=== PATIENT | male | born 1980 | race Caucasian/White ===

== ENCOUNTER 2017-02-23 16:44 | Emergency (ER) | payer BC, OTHER ==
[2017-02-23 21:24] LABS: Hematocrit 45 % (42-52); Hemoglobin 15.1 g/dl (14.0-18.0); Mean Corpuscular HGB Conc 34 g/dl (31-36); Mean Corpuscular Hemoglobin 31 pg (27-31); Mean Corpuscular Volume 93 fL (80-94); Mean Platelet Volume 10 um3 (7.4-10.4); Red Blood Count 4.83 10^6/ul (4.0-5.4); Red Cell Distribution Width 14 % (10.5-15)
[2017-02-23 21:37] LABS: Albumin 4.3 g/dL (3.2-5.2); BUN/Creatinine Ratio 17.6 (8-20); Calcium 9.4 mg/dL (8.6-10.3); EGFR African American 129.7 (>60); EGFR Non-African American 100.9 (>60); Potassium 3.4 mmol/L (3.5-5.0); Total Bilirubin 0.6 mg/dL (0.2-1.0); Total Protein 7.3 g/dL (6.4-8.9)
[2017-02-23 21:40] LABS: Urine Bilirubin Negative (Negative); Urine Glucose Negative (Negative); Urine Nitrite Negative (Negative)
[2017-02-23] MEDS ORDERED: Iohexol 350* (CONTRAST) 500 ML MDV IV ONE (21:47)
--- NOTE | 2017-02-23 22:12 | RAD ---
INDICATION: Right-sided chest pain. COMPARISON: Comparison is made with a prior chest x-ray study from May 05, 2007. TECHNIQUE: Dual-energy PA and lateral views of the chest were obtained. FINDINGS: The heart is within normal limits in size. Mediastinal and hilar contours appear within normal limits. The lungs are hyperinflated and clear. No pleural effusion or pneumothorax is seen. IMPRESSION: NO EVIDENCE FOR ACTIVE CARDIOPULMONARY DISEASE.
--- NOTE | 2017-02-23 22:34 | RAD ---
INDICATION: Tinnitus. COMPARISON: Comparison is made with a prior CT of the brain from November 23, 2006. TECHNIQUE: Contiguous axial sections of the brain were obtained from the skull base to the vertex without contrast. FINDINGS: The ventricles, cisterns and sulci are within normal limits. No significant focal abnormality or mass effect is seen. There is no evidence for hemorrhage. No significant focal osseous abnormality is seen. The visualized portion of the paranasal sinuses and mastoid air cells appear clear. IMPRESSION: NO EVIDENCE FOR GROSS ACUTE INFARCT, MASS EFFECT OR HEMORRHAGE.
--- NOTE | 2017-02-23 23:02 | RAD ---
INDICATION: Tinnitus. COMPARISON: Comparison is made with a prior CT of the brain of the same date. TECHNIQUE: A CT angiogram of the head and neck was performed following intravenous injection of 80 ml of Omnipaque 350 nonionic contrast. Contiguous axial sections were obtained from the thoracic inlet through the skull vertex. Images were reconstructed in the coronal and sagittal planes and in a 3-D volume rendered format. The distal cervical internal carotid artery diameter is used as the denominator for stenosis measurement. FINDINGS: RIGHT CAROTID: The common and internal carotid arteries appear patent without stenosis. LEFT CAROTID: The common and internal carotid arteries appear patent without stenosis. VERTEBRALS: The vertebral arteries appear widely patent. CTA BRAIN: The internal carotid, anterior and middle cerebral arteries appear patent without evidence for high-grade stenosis or occlusion. The vertebral, basilar and posterior cerebral arteries appear patent without evidence for high-grade stenosis or occlusion. No gross focal perfusion abnormalities are seen. No aneurysm or vascular malformation is seen. NECK: There is a slightly prominent left jugulodigastric lymph node measuring up to 1.3 cm in transverse dimension although no significant enlarged lymph nodes by size criteria are seen. The tonsils appear prominent on both sides. The parotid and submandibular glands appear to be within normal limits. The thyroid gland appears normal. The lung apices appear clear. The sinuses are clear. IMPRESSION: NO EVIDENCE FOR CAROTID STENOSIS OR LARGE VESSEL INTRACRANIAL THROMBUS. CPT II Codes: 3100F
[2017-02-23 23:48] VITALS: BP 127/80
--- NOTE | 2017-02-25 23:24 | ED ---
Kristal Fitch Rebecca, scribed for Ayan Montes MD on 02/23/17 at 1906 . Dizziness - HPI Summary HPI Summary: Pt is a 36 y/o M referred from [facility] who presents to ED c/o tinnitus and dizziness characterized as his depth perception being compromised. Sx present today as acute on chronic, beginning gradually multiple months ago and increasing in frequency recently. Sx are typically intermittent, lasting for a few days as a time, but worsened today after standing up while at work. Sx aggravated by supine to erect, alleviated by nothing. Pt additionally c/o headache in the right temporal and parietal regions characterized as throbbing and pressure. Denies hearing loss, nausea, decreased appetite, slurred speech, numbness or tingling. Current sx are similar to prior episodes of tinnitus that have been intermittent since last . Reports one prior similar BONNER/migraine when his father in 1998, which was resolved with an injection to the neck. No FHx of Meniere's Disease. - History Of Current Complaint Chief Complaint: EDDizziness Stated Complaint: LIGHTHEADED/FALL Time Seen by Provider: 02/23/17 18:56 Hx Obtained From: Patient Onset/Duration: Still Present Timing: Intermittent Episode Lasting Severity Initially: Severe Severity Currently: Severe Character: Unable To Describe - depth perception being compromised Aggravating Factor(s): Supine To Erect Alleviating Factor(s): Nothing Associated Signs And Symptoms: Positive: Tinnitus - Intermittent, CC, Other: - BONNER (R temporal and parietal); Denies numbness, tingling. Negative: Nausea, Change In Diet, Slurred Speech - Allergies/Home Medications Allergies/Adverse Reactions: Allergies Allergy/AdvReac Type Severity Reaction Status Date / Time Penicillins Allergy Unknown Verified 02/23/17 16:50 Reaction Details PMH/Surg Hx/FS Hx/Imm Hx Cardiovascular History: Denies: Hx Hypertension Sensory History: Reports: Hx Contacts or Glasses Opthamlomology History: Reports: Hx Contacts or Glasses - Surgical History Surgery Procedure, Year, and Place: R hand cyst removal, adenoidectomy as a child Hx Anesthesia Reactions: No Infectious Disease History: No Infectious Disease History: Denies: Traveled Outside the [place] in Last 30 Days - Family History Known Family History: Positive: Other - Negative for Meniere's Disease - Social History Occupation: Employed Full-time - Construction Alcohol Use: Occasionally Alcohol Amount: 2-3 hard liquor drinks per week Substance Use Type: Reports: Marijuana Smoking Status (MU): Current Every Day Smoker Cigarettes Packs Per Day: 3 Review of Systems Negative: Fever, Chills Negative: Erythema ENT: Other - Tinnitus (intermittent for months) Positive: Other - Denies hearing loss. Negative: Sore Throat Negative: Chest Pain Negative: Shortness Of Breath, Cough Positive: Other - Denies decreased appetite. Negative: Abdominal Pain, Vomiting , Nausea Negative: dysuria, hematuria Negative: Myalgia, Edema Negative: Rash Neurological: Other - Dizziness characterized as depth perception being "off," Negative for tingling Negative: Numbness, Slurred Speech All Other Systems Reviewed And Are Negative: Yes Physical Exam - Summary Physical Exam Summary: Constitutional: Well-developed, Well-nourished, Alert. (-) Distressed Skin: Warm, Dry HENT: Eyes: Conjunctiva normal Neck: Musculoskeletal ROM normal neck. (-) JVD, (-) Stridor, (-) Tracheal deviation Cardio: Rhythm regular, rate normal, Heart sounds normal; Intact distal pulses; The pedal pulses are 2+ and symmetric. Radial pulses are 2+ and symmetric. (-) Murmur Pulmonary/Chest wall: Effort normal. (-) Respiratory distress, (-) Wheezes, (-) Rales Abd: Soft. (-) Tenderness, ~(-) Distension, (-) Guarding, (-) Rebound Musculoskeletal: (-) Edema Lymph: (-) Cervical adenopathy Neuro: Alert, Oriented x3, Strength normal, Cranial nerves II-XII are grossly intact. (-) Dysmetria, (-) Nystagmus, (-) Ataxia by finger to nose testing, (-) Sensory deficit. Psych: Mood and affect Normal Triage Information Reviewed: Yes Vital Signs On Initial Exam: Initial Vitals Temp Pulse Resp BP Pulse Ox 98.1 F 76 18 137/93 100 02/23/17 16:51 02/23/17 16:51 02/23/17 16:51 02/23/17 16:51 02/23/17 16:51 Vital Signs Reviewed: Yes - Holt Coma Scale Coma Scale Total: 15 Diagnostics - Vital Signs Vital Signs Temp Pulse Resp BP Pulse Ox 06/06/17 16:51 98.1 F 76 18 137/93 100 - Laboratory Result Diagrams: 02/23/17 17:48 02/23/17 17:48 Lab Statement: Any lab studies that have been ordered have been reviewed, and results considered in the medical decision making process. - Radiology CXR Xray Interpretation: No Acute Changes - NO EVIDENCE FOR ACTIVE CARDIOPULMONARY DISEASE Radiology Interpretation Completed By: Radiologist - CT Brain CT CT Interpretation: No Acute Changes - NO EVIDENCE FOR GROSS ACUTE INFARCT, MASS EFFECT OR HEMORRHAGE. CT Interpretation Completed By: Radiologist Head CTA CT Interpretation: No Acute Changes - NO EVIDENCE FOR CAROTID STENOSIS OR LARGE VESSEL INTRACRANIAL THROMBUS. CT Interpretation Completed By: Radiologist - EKG 1659 Cardiac Rate: NL - 72 BPM EKG Rhythm: Sinus Rhythm ST Segment: Normal EKG Interpretation: No STEMI Dizzy Course/Dx - Course Assessment/Plan: Pt is a 36 y/o M who presents to ED c/o acute on chronic tinnitus, dizzines (depth perception skewed) and BONNER. CTA shows no aneurysms. CXR , Head CT and EKG reveal no acute findings. He has had normal BPs. Tenderness has been chronic, possibly related to Meneres by presenteation. He will be D/C to home wiht a Dx of chronic tinnitus and a follow up eith ENT in 2-3 days and [facility] [place] in 3-5 days. He mentioned severeal unrelated sx other the last few months, possibly resulting from anxiety. May have a component of panic attack and hypochondriasis. - Diagnoses Provider Diagnoses: chronic tinnitus Discharge - Discharge Plan Condition: Stable Disposition: HOME Patient Education Materials: Tinnitus (ED) Referrals: [facility]FERRAL [Outside] - 5 Days (Follow up in 3-5 days. ) Garett Gonzalez MD [Medical Doctor] - 3 Days (Follow up in 2-3 days. ) Additional Instructions: RETURN TO ED FOR ANY WORSENING OR CHANGING SYMPTOMS. The documentation as recorded by the Kristal linda Rebecca accurately reflects the service I personally performed and the decisions made by me, Ayan Montes MD.
== END 2017-02-23 23:46 | disposition home or self-care (01) ==
LOC: ED 16:44
DX: H93.19 Tinnitus, unspecified ear (principal); R42 Dizziness and giddiness
CPT/HCPCS: 36415; 70450; 70496; 70498; 71020; 80053; 81003; 83605; 84484; 85025; 85610; 85730; 93005; 99283; Q9967

== ENCOUNTER 2017-11-03 21:33 | Emergency (ER) | payer OTHER ==
[2017-11-03] MEDS ORDERED: NS 0.9% 1000 ML* 1,000 ML IV ONE (22:45)
[2017-11-03] MEDS ORDERED: Pantoprazole IV* 40 MG IV ONE (22:45)
[2017-11-03] MEDS ORDERED: Al Hydrox/Mg Hydrox/Simet LIQ* 30 ML UDC PO ONE (22:45)
[2017-11-03] MEDS ORDERED: Lidocaine 2% VISCOUS* 15 ML UDC PO ONE (22:45)
[2017-11-03] MEDS ORDERED: Aspirin Low Dose CHEW TAB* 81 MG PO ONE (22:46)
[2017-11-03 22:57] LABS: ABS Basophils 0.1 10^3/ul (0-0.2); ABS Eosinophils 0.4 10^3/ul (0-0.6); ABS Monocytes 1.1 10^3/ul (0-0.8); ABS Neutrophils 8.2 10^3/ul (1.5-7.7); ABS Nucleated RBC 0 10^3/ul; Eosinophil % 2.9 % (0-6); Hematocrit 45 % (42-52); Hemoglobin 15.3 g/dl (14.0-18.0); Mean Corpuscular HGB Conc 34 g/dl (31-36); Mean Corpuscular Hemoglobin 32 pg (27-31); Mean Corpuscular Volume 92 fL (80-94); Mean Platelet Volume 9 um3 (7.4-10.4); Nucleated Red Blood Cells % 0.1; Platelet Count 256 10^3/ul (150-450); Red Blood Count 4.85 10^6/ul (4.0-5.4); Red Cell Distribution Width 14 % (10.5-15); White Blood Count 13.7 10^3/ul (3.5-10.8)
[2017-11-03 23:09] LABS: EGFR Non-African American 103.7 (>60)
[2017-11-03 23:20] LABS: INR 0.97 (0.77-1.02)
--- NOTE | 2017-11-04 01:44 | ED ---
Laurie Fitch Nilda, scribed for Grant Culver MD on 11/03/17 at 2248 . HPI Chest Pain - HPI Summary HPI Summary: This patient is a 36 year old M presenting to [facility] accompanied by friend with a chief complaint of CP (back and front, currently not present) at 1830. The patient rates the initial pain 8/10 in severity but currently 0/10. Symptoms aggravated by recent stressor and PO intake, but alleviated by spontaneous resolution. Patient reports numbness in bilat UE and RLE (resolved), hiccups during PO intake, sensation of foreign body in throat (since 4 days ago), chest tightness (yesterday), and SOB (last night, resolved), but denies melena. He states he hasnt had recent choking episode. PMHx includes GERD (treated with antacid prn) and sleep apnea. - History of Current Complaint Chief Complaint: EDChestPainROMI Time Seen by Provider: 11/03/17 22:33 Hx Obtained From: Patient Onset/Duration: Started Hours Ago, Resolved Timing: Lasting Hours Initial Severity: Severe Current Severity: None Pain Intensity: 7 - initial Pain Scale Used: 0-10 Numeric Chest Pain Location: Right Anterior Chest Pain Radiates: Yes Chest Pain Radiates To:: Back Aggravating Factor(s): Other: - stress and PO intake Alleviating Factor(s): Spontaneous Resolution Associated Signs and Symptoms: Positive: Other: - numbness in bilat UE and RLE ( resolved), hiccups during PO intake, sensation of foreign body in throat (since 4 days ago), chest tightness (yesterday), and SOB (last night, resolved), but denies melena. - Additional Pertinent History Primary Care Physician: [id number] - Allergy/Home Medications Allergies/Adverse Reactions: Allergies Allergy/AdvReac Type Severity Reaction Status Date / Time Penicillins Allergy Unknown Verified 11/03/17 22:42 Reaction Details PMH/Surg Hx/FS Hx/Imm Hx Cardiovascular History: Denies: Hx Hypertension Respiratory History: Reports: Hx Sleep Apnea GI History: Reports: Hx Gastroesophageal Reflux Disease Sensory History: Reports: Hx Contacts or Glasses Opthamlomology History: Reports: Hx Contacts or Glasses - Surgical History Surgery Procedure, Year, and Place: R hand cyst removal, adenoidectomy as a child Hx Anesthesia Reactions: No Infectious Disease History: No Infectious Disease History: Denies: Traveled Outside the [place] in Last 30 Days - Family History Known Family History: Positive: Other - Negative for Meniere's Disease - Social History Occupation: Employed Full-time Alcohol Use: Occasionally Alcohol Amount: 2-3 hard liquor drinks per week Substance Use Type: Reports: Marijuana Hx Tobacco Use: Yes Smoking Status (MU): Current Every Day Smoker Review of Systems Positive: Other - hiccups with PO intake, sensation of foreign body in throat Positive: Chest Pain - resolved, chest tightness yesterday Positive: Shortness Of Breath - last night, resolved Positive: Other - negative melena Positive: Numbness - bilat UE and RLE (resolved) All Other Systems Reviewed And Are Negative: Yes Physical Exam - Summary Physical Exam Summary: General: well-appearing, no pain distress Skin: warm, color reflects adequate perfusion, dry Head: normal Eyes: EOMI, TONY ENT: normal Neck: supple, nontender Respiratory: CTA, breath sounds present Cardiovascular: RRR Abdomen: soft, tender over epigastrium Bowel: present Musculoskeletal: normal, strength/ROM intact Neurological: normal, sensory/motor intact, A&O x3 Psychological: affect/mood appropriate Triage Information Reviewed: Yes Vital Signs On Initial Exam: Initial Vitals Temp Pulse Resp BP Pulse Ox 98.1 F 88 16 122/88 97 11/03/17 21:47 11/03/17 21:47 11/03/17 21:47 11/03/17 21:47 11/03/17 21:47 Vital Signs Reviewed: Yes Diagnostics - Vital Signs Vital Signs Temp Pulse Resp BP Pulse Ox 11/03/17 21:47 98.1 F 88 16 122/88 97 - Laboratory Lab Results: Lab Results 11/03/17 11/03/17 11/03/17 Range/Units 22:10 22:10 22:10 WBC 13.7 H (3.5-10.8) 10^3/ul RBC 4.85 (4.0-5.4) 10^6/ul Hgb 15.3 (14.0-18.0) g/dl Hct 45 (42-52) % MCV 92 (80-94) fL MCH 32 H (27-31) pg MCHC 34 (31-36) g/dl RDW 14 (10.5-15) % Plt Count 256 (150-450) 10^3/ul MPV 9 (7.4-10.4) um3 Neut % (Auto) 59.8 (38-83) % Lymph % (Auto) 29.0 (25-47) % [place] % (Auto) 7.8 (1-9) % Eos % (Auto) 2.9 (0-6) % Baso % (Auto) 0.5 (0-2) % Absolute Neuts (auto) 8.2 H (1.5-7.7) 10^3/ul Absolute Lymphs (auto) 4.0 (1.0-4.8) 10^3/ul Absolute Monos (auto) 1.1 H (0-0.8) 10^3/ul Absolute Eos (auto) 0.4 (0-0.6) 10^3/ul Absolute Basos (auto) 0.1 (0-0.2) 10^3/ul Absolute Nucleated RBC 0 10^3/ul Nucleated RBC % 0.1 INR (Anticoag Therapy) 0.97 (0.77-1.02) APTT 31.0 (26.0-36.3) seconds D-Dimer, Quantitative < 200 (Less Than 230) ng/mL Sodium 134 (133-145) mmol/L Potassium 3.5 (3.5-5.0) mmol/L Chloride 100 L (101-111) mmol/L Carbon Dioxide 28 (22-32) mmol/L Anion Gap 6 (2-11) mmol/L BUN 16 (6-24) mg/dL Creatinine 0.83 (0.67-1.17) mg/dL Est GFR ( Amer) 133.3 (>60) Est GFR (Non-Af Amer) 103.7 (>60) BUN/Creatinine Ratio 19.3 (8-20) Glucose 112 H (70-100) mg/dL Lactic Acid (0.5-2.0) mmol/L Calcium 9.5 (8.6-10.3) mg/dL Total Bilirubin 0.40 (0.2-1.0) mg/dL AST 20 (13-39) U/L ALT 22 (7-52) U/L Alkaline Phosphatase 54 (34-104) U/L Troponin I 0.00 (<0.04) ng/mL C-Reactive Protein 1.70 (< 5.00) mg/L Total Protein 7.4 (6.4-8.9) g/dL Albumin 4.3 (3.2-5.2) g/dL Globulin 3.1 (2-4) g/dL Albumin/Globulin Ratio 1.4 (1-3) Lipase 28 (11.0-82.0) U/L TSH 6.60 H (0.34-5.60) mcIU/mL 11/03/17 Range/Units 22:10 WBC (3.5-10.8) 10^3/ul RBC (4.0-5.4) 10^6/ul Hgb (14.0-18.0) g/dl Hct (42-52) % MCV (80-94) fL MCH (27-31) pg MCHC (31-36) g/dl RDW (10.5-15) % Plt Count (150-450) 10^3/ul MPV (7.4-10.4) um3 Neut % (Auto) (38-83) % Lymph % (Auto) (25-47) % [place] % (Auto) (1-9) % Eos % (Auto) (0-6) % Baso % (Auto) (0-2) % Absolute Neuts (auto) (1.5-7.7) 10^3/ul Absolute Lymphs (auto) (1.0-4.8) 10^3/ul Absolute Monos (auto) (0-0.8) 10^3/ul Absolute Eos (auto) (0-0.6) 10^3/ul Absolute Basos (auto) (0-0.2) 10^3/ul Absolute Nucleated RBC 10^3/ul Nucleated RBC % INR (Anticoag Therapy) (0.77-1.02) APTT (26.0-36.3) seconds D-Dimer, Quantitative (Less Than 230) ng/mL Sodium (133-145) mmol/L Potassium (3.5-5.0) mmol/L Chloride (101-111) mmol/L Carbon Dioxide (22-32) mmol/L Anion Gap (2-11) mmol/L BUN (6-24) mg/dL Creatinine (0.67-1.17) mg/dL Est GFR ( Amer) (>60) Est GFR (Non-Af Amer) (>60) BUN/Creatinine Ratio (8-20) Glucose (70-100) mg/dL Lactic Acid 0.9 (0.5-2.0) mmol/L Calcium (8.6-10.3) mg/dL Total Bilirubin (0.2-1.0) mg/dL AST (13-39) U/L ALT (7-52) U/L Alkaline Phosphatase (34-104) U/L Troponin I (<0.04) ng/mL C-Reactive Protein (< 5.00) mg/L Total Protein (6.4-8.9) g/dL Albumin (3.2-5.2) g/dL Globulin (2-4) g/dL Albumin/Globulin Ratio (1-3) Lipase (11.0-82.0) U/L TSH (0.34-5.60) mcIU/mL Result Diagrams: 11/03/17 22:10 11/03/17 22:10 Lab Statement: Any lab studies that have been ordered have been reviewed, and results considered in the medical decision making process. - Radiology CXR Radiology Interpretation Completed By: ED Physician - CXR reveals NAD. - EKG 2155 Cardiac Rate: NL EKG Rhythm: Sinus Rhythm - [address] Segment: Normal Ectopy: None EKG Interpretation: early repolarization in anterior leads Re-Evaluation - Re-Evaluation First Eval Re-Evaluation Time: 01:28 Change: Improved Comment: Reviewed labs and imaging results with pt. Pain resolved after GI cocktail. Chest Pain Course/Dx - Course Assessment/Plan: This patient is a 36 year old M presenting to [facility] accompanied by friend with a chief complaint of CP (posterior and anterior, currently not present) at 1830. The patient rates the initial pain 8/10 in severity but currently 0/10. Symptoms aggravated by recent stressors and PO intake, but alleviated by spontaneous resolution. Patient reports numbness in bilat UE and RLE (resolved), hiccups during PO intake, sensation of foreign body in throat (since 4 days ago), chest tightness (yesterday), and SOB (last night, resolved), but denies melena. He states he hasnt had recent choking episode. PMHx includes GERD (treated with antacid prn) and sleep apnea. An EKG reveals NSR, 79 bpm, no ST elevation, no ectopy, and early repolarization in anterior leads. CXR reveals NAD. BP noted and advised to follow up with PCP. Allergies noted. Medications reviewed. CHEST PAIN GONE AFTER GI COCKTAIL. HAS HAD CHEST PAIN 11/03/17 AND DAYS PRIOR. DISCUSSED RESTARTING A PPI OR H2 DAVID ANTACID; PATIENT STATES HE HAS ALL THESE MEDICATIONS AT HOME. F/U WITH PMD; RETURN IF WORSE. - Diagnoses Provider Diagnoses: Blood pressure elevated without history of HTN, Chest pain, GERD ( gastroesophageal reflux disease) Discharge - Discharge Plan Condition: Stable Disposition: HOME Prescriptions: Sucralfate TAB* [Carafate*] 1 gm PO QID #60 tab Patient Education Materials: Chest Pain (ED), Gastroesophageal Reflux Disease ( ED) Referrals: Reynaldo Muse MD [Primary Care Provider] - Additional Instructions: FOLLOW UP WITH YOUR DOCTOR. CALL TODAY, 11/04/17, TO ARRANGE FOLLOW UP. TAKE YOUR ANTACID MEDICATION DIRECTED. RETURN TO THE EMERGENCY DEPARTMENT FOR ANY WORSENING OF YOUR CONDITION; PAIN, SHORTNESS OF BREATH, YOU FEEL ILL OR QUESTIONS OR CONCERNS. Your blood pressure was elevated during todays visit; please follow up with your primary care provider within a week for further evaluation. The documentation as recorded by the Laurie linda Nilda accurately reflects the service I personally performed and the decisions made by me, Grant Culver MD.
[2017-11-04 01:53] VITALS: BP 129/99
--- NOTE | 2017-11-04 07:55 | RAD ---
INDICATION: Chest pain. COMPARISON: Comparison is made with a prior study from February 23, 2017. TECHNIQUE: A portable view of the chest was obtained. FINDINGS: Cardiac and mediastinal contours appear to be within normal limits. The lungs are clear. No pleural effusion is seen. IMPRESSION: NO EVIDENCE FOR ACUTE DISEASE.
== END 2017-11-04 01:54 | disposition home or self-care (01) ==
LOC: ED 21:33
DX: R07.9 Chest pain, unspecified (principal); K21.9 Gastro-esophageal reflux disease without esophagitis; R03.0 Elevated blood-pressure reading, without diagnosis of hypertension; F17.200 Nicotine dependence, unspecified, uncomplicated
CPT/HCPCS: 36415; 71045; 80053; 83605; 83690; 84443; 84484; 85025; 85379; 85610; 85730; 86140; 93005; 96360; 96374; 99283; A9270-GY

== ENCOUNTER 2018-09-15 13:18 | Emergency (ER) | payer OTHER ==
[2018-09-15 13:32] VITALS: BP 123/83
--- NOTE | 2018-09-15 14:05 | UC ---
Respiratory Complaint HPI - HPI Summary HPI Summary: Pt reports in Nov had cough, cold sx, pt was given Rx doxy and prednisone. Pt states was improving until 10 days ago.Pt has been to a different urgent care 4 days ago and dx with viral. pt states has been using OTC cough suppressant, dayquil with little imptovement. Pt has a nebulizer and has been using with short term improvement. No fever, chills, rash. no cp, abd pain. no n/v/d. Pt does use tobacco. 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 - History of Current Complaint Chief Complaint: UCRespiratory Stated Complaint: COUGH CONGESTION RESP ISSUE Time Seen by Provider: 09/15/18 14:05 Hx Obtained From: Patient Onset/Duration: Gradual Onset Pain Intensity: 4 - Allergies/Home Medications Allergies/Adverse Reactions: Allergies Allergy/AdvReac Type Severity Reaction Status Date / Time Penicillins Allergy Unknown Verified 09/15/18 13:32 Reaction Details PMH/Surg Hx/FS Hx/Imm Hx Previously Healthy: Yes - Surgical History Surgical History: Yes Surgery Procedure, Year, and Place: R hand cyst removal, adenoidectomy as a child - Family History Known Family History: Positive: Other - Negative for Meniere's Disease - Social History Occupation: Employed Full-time Lives: With Family Alcohol Use: Occasionally Alcohol Amount: 2-3 hard liquor drinks per week Substance Use Type: Marijuana Smoking Status (MU): Current Every Day Smoker Household Exposure Type: Cigarettes - Immunization History Most Recent Influenza Vaccination: never Most Recent Tetanus Shot: unknown Most Recent Pneumonia Vaccination: never Review of Systems All Other Systems Reviewed And Are Negative: Yes Constitutional: Positive: Fatigue ENT: Positive: Nasal Discharge, Sinus Congestion Respiratory: Positive: Shortness Of Breath - with coughing paroxysms, Cough Physical Exam - Summary Physical Exam Summary: Vital Signs Reviewed: Yes A+Ox3, no distress, coarse cough Eyes: Conjunctiva Clear, TONY. EOM intact and full ENT: Hearing grossly normal TM x 2 clear, mmoist, uvula midline, no exudate, no erythema Neck: Positive: Supple resp; coarse cough, scatterd wheeze, speaking full sentences except interrupted with cough. no retractiion, no accessory muscle use Cardiovascular: RRR nl s1, s2 no m/r CBT <2 sec abd soft + BS nt/nd no guarding, no distension Musculoskeletal Exam: PERALTA x 4 without difficulty Strength Intact, ROM Intact Neurological: Positive: Alert, + sensation throughout Psychological: Positive: Normal Response To Family Skin: Positive: no rash, no ecchymosis Triage Information Reviewed: Yes Vital Signs: Initial Vital Signs Temp 99.6 F 09/15/18 13:28 Pulse 87 09/15/18 13:28 Resp 17 09/15/18 13:28 BP 123/83 09/15/18 13:28 Pulse Ox 98 09/15/18 13:28 Diagnostic Evaluation - Laboratory O2 Sat by Pulse Oximetry: 98 Respiratory Course/Dx - Course Course Of Treatment: Pt presents with progressive cough, green sputum and wheeze. Ptreports had a CXR earlier this week at different facility was neg. VSS. pt with coarse cough and scattered wheeze + tobacco use. will rx zithromax. prednisone. secretion precaution. return precaution. hydrate. motrin/apap - Differential Dx/Diagnosis Provider Diagnosis: Acute bronchitis Discharge - Sign-Out/Discharge Documenting (check all that apply): Patient Departure All imaging exams completed and their final reports reviewed: No Studies - Discharge Plan Condition: Stable Disposition: HOME Prescriptions: Azithromycin TAB* [Zithromax TAB (Z-EDILMA) 250 mg #6 tabs] 2 tab PO .TODAY, THEN 1 DAILY #1 edilma predniSONE TAB* [Deltasone 20 MG TAB*] 20 mg PO DAILY #13 tab Patient Education Materials: Acute Bronchitis (ED) Referrals: Reynaldo Muse MD [Primary Care Provider] - Additional Instructions: -Take antibiotics exactly as prescribed until gone -Use your albuterol nebulizer - 2 puffs every 4 hours for the next 2 days - then as needed -Stay well hydrated - avoid excess caffeine and all alcohol - eat regular, healthy meals - - humidify the air in the room where you sleep - boil water, run a hot steam shower, vaporizer, cups of water by heat register - okay to take over the counter decongestant and cough medication - take prednisone as prescribed until gone -- These infections are spread by secretions - do NOT share eating or drinking utensils - clean items you share with other people such as cell phones, computer mouse, TV remote, computer tablets,etc.. Once you have been antibiotics for 2 days, change your toothbrush and your pillowcase. -Contact your doctor to arrange a follow-up appointment this week. Call your doctor, return here or go to the emergency department with any questions or concerns d/w with Dr. Muse regarding smoking cessation - Billing Disposition and Condition Condition: STABLE Disposition: Home
== END 2018-09-15 14:29 | disposition home or self-care (01) ==
LOC: UCEAST 13:18
DX: J20.9 Acute bronchitis, unspecified (principal); Z88.0 Allergy status to penicillin; F17.200 Nicotine dependence, unspecified, uncomplicated
CPT/HCPCS: 99212; G0463

== ENCOUNTER 2018-11-25 08:10 | Day surgery (SDC) | payer OTHER ==
[~2018-11-25 08:10] MED LIST: Acetaminophen TAB* 325 MG ONE; Acetaminophen TAB* 325 MG PO ONE; Buffered Lidocaine 1% SYRIN* 1 ML/SYRINGE INTRADERM ONE; Gabapentin CAP(*) 300 MG ONE; Gabapentin CAP(*) 300 MG PO ONE; Lactated Ringers 1000 ML Bag* 1,000 ML IV SCH
[2018-11-25] MEDS ORDERED: Ondansetron INJ* 2 MG/ML VIAL ONE (09:27)
[2018-11-25] MEDS ORDERED: Dexamethasone IV* 4 MG/ML 1 ML (4 MG) ONE ×2 (09:27→10:10)
[2018-11-25] MEDS ORDERED: Lidocaine 2% PF * 5 ML VIAL ONE (09:27)
[2018-11-25] MEDS ORDERED: Succinylcholine* 20 MG/ML 10 ML VIAL ONE (09:27)
[2018-11-25] MEDS ORDERED: Propofol* 10 MG/ML 20 ML BTL ONE (09:27)
[2018-11-25] MEDS ORDERED: Midazolam* 1 MG/ML 2 ML VIAL (2 MG) ONE (09:29)
[2018-11-25] MEDS ORDERED: fentaNYL* 50 MCG/ML 2 ML VIAL (100 MCG VIAL) ONE ×2 (09:29→09:59)
[2018-11-25] MEDS ORDERED: Cisatracurium* 2 MG/ML MDV 5 ML ONE (09:44)
[2018-11-25] MEDS ORDERED: Levalbuterol 0.63MG/3ML NEB* UNIT OF USE INH PRN (09:59)
[2018-11-25] MEDS ORDERED: Ondansetron INJ* 2 MG/ML VIAL IV PRN (09:59)
[2018-11-25] MEDS ORDERED: HYDROmorphone INJ1* 1 MG/ML SYRINGE IV PRN (09:59)
[2018-11-25] MEDS ORDERED: Naloxone* 0.4 MG/ML 1 ML VIAL IV PRN (09:59)
[2018-11-25] MEDS ORDERED: DiMENhydriNATE IV* 50 MG/ML VIAL IV PUSH PRN (09:59)
[2018-11-25] MEDS ORDERED: fentaNYL* 50 MCG/ML 2 ML VIAL (100 MCG VIAL) IV PRN (09:59)
[2018-11-25] MEDS ORDERED: PROCHLORPERAZINE INJ 5 MG/ML 2 ML VIAL IV PRN (09:59)
[2018-11-25] MEDS ORDERED: Acetaminophen TAB* 325 MG PO PRN (09:59)
[2018-11-25] MEDS ORDERED: diPHENhydraMINE IV* 50 MG/ML 1 ml VIAL (BENADRYL) IV PRN (09:59)
[2018-11-25] MEDS ORDERED: HYDROcodone/ACETAMIN 5-325 MG* 1 TAB PO PRN ×2 (09:59)
[2018-11-25 11:37] VITALS: BP 135/79
--- NOTE | 2018-11-25 11:38 | OP ---
DATE OF OPERATION: 11/25/18 - [facility] DATE OF : 76 SURGEON: Anthony Castañeda MD [employer] MECHANIC: None. ANESTHESIA: General. PRE-OP DIAGNOSIS: Tonsillar hypertrophy. POST-OP DIAGNOSIS: Tonsillar hypertrophy. OPERATIVE PROCEDURE: Tonsillectomy. ESTIMATED BLOOD LOSS: Approximately 200 cc. SPECIMENS: Right and left tonsils to Pathology. INDICATIONS: This is a 38-year-old male who has had problems with recurrent tonsil discomfort, has had a few peritonsillar abscesses, and also has extremely large tonsils with obstructive sleep apnea. The decision was made to proceed with tonsillectomy. DESCRIPTION OF PROCEDURE: The patient was brought to the operating room. General anesthesia was induced and oral endotracheal tube was placed. Time-out was performed after the patient was draped. The table was turned 90 degrees. A McIvor mouth gag was used to facilitate exposure to the oropharynx and was suspended from the Hazel stand. The right tonsil was grasped with a straight Allis forceps, retracted medially and dissected free of its fossa with a coblation device at a setting of 7 and 3. There were many significant small bleeders during the dissection, which needed to be controlled with either bipolar function on the device or at one point a suction Bovie, which was brought into the field. Once the right tonsil was removed in its entirety, the tonsillar fossa was explored. The superior and inferior pole regions were prophylactically cauterized again. Attention was then turned to the left tonsil. This was removed in an identical fashion, again utilizing the coblation device. Again, multiple small significant bleeders were encountered during the capsular dissection. Some of these were able to be controlled with the bipolar function on the coblation device, but a number did need to be controlled with the suction Bovie. Once the left tonsil was completely removed , the superior and inferior pole regions were prophylactically cauterized. The tonsillar fossas were then extensively irrigated and suctioned. Numerous small points of bleeding from each tonsil were again cauterized. Several iterations of this were performed until eventually the tonsillar fossas were completely dry. The mouth gag was let down for a period of a minute. It was opened again. There was no evidence of active bleeding. An orogastric tube was passed into the stomach and the stomach contents were evacuated. Tonsillar fossas were aggressively irrigated one last time and once hemostasis seem to be assured, the patient was returned to the care of the anesthesiologist for extubation. [id number]/[facility] #: [id number] DANISH
== END 2018-11-25 12:06 | disposition home or self-care (01) ==
LOC: OR 08:10
PROVIDERS: ATTEND Otolaryngology
DX: J35.1 Hypertrophy of tonsils (principal); Z72.0 Tobacco use; K21.9 Gastro-esophageal reflux disease without esophagitis; G47.33 Obstructive sleep apnea (adult) (pediatric)
CPT/HCPCS: 88304; A9270-GY; J0330; J1100; J2250; J2405; J2704; J3010

== ENCOUNTER 2019-09-01 04:37 | Emergency (ER) | payer OTHER ==
--- OUTSIDE RECORDS SUMMARY | 2019-09-01 04:47 | XMS REPORT | Summary of Care ---
:1980 Author Organization [facility] Address [address] [place] [place] [address] Care Team Providers Name Role Phone Reynaldo Muse Primary Care Provider Reason for Visit Reason Comments Anxiety pt statse he had a bad breakup and is anxious. was self medicating with alcohol but would like to talk about medication Encounter Details Date Type Department Care Team Description 08/07/2019 Office Visit [facility] Trish Link, Anxiety (Primary Dx) [address] [facility] [place] [address] [address] [phone] [place] [address] [phone] Allergies Active Allergy Reactions Severity Noted Date Comments Penicillin G Anaphylaxis 05/06/2016 documented as of this encounter (statuses as of 08/07/2019) Medications Medication Sig Dispensed Refills Start Date End Date Status escitalopram Take 1 Tab 30 Tab 3 08/07/2019 Active (LEXAPRO) 10 MG Oral by mouth TabIndications: DAILY. Anxiety busPIRone (BUSPAR) 5 Take 1 Tab 90 Tab 3 08/07/2019 Active MG Oral Tab by mouth THREE TIMES DAILY. Omeprazole delayed Take 20 mg 0 Discontinued rel cap (PRILOSEC) 20 by mouth 9 MG Oral CAPSULE DAILY. DELAYED RELEASEIndications: Gastroesophageal reflux disease with esophagitis sucralfate (CARAFATE) by Does 0 11/04/2017 Discontinued 1 GM Oral not apply 9 TabIndications: route. Gastroesophageal reflux disease with esophagitis escitalopram Take 1 Tab 30 Tab 1 11/09/2017 Discontinued (LEXAPRO) 10 MG Oral by mouth 9 (Reorder) TabIndications: DAILY. Anxiety documented as of this encounter (statuses as of 08/07/2019) Active Problems Problem Noted Date Tobacco use 05/06/2016 Overview: 1/3 pack per day started age 19 Gastroesophageal reflux disease with esophagitis 05/06/2016 Colon polyps 05/06/2016 Overview: Colonoscopy performed age 27 for rectal bleeding documented as of this encounter (statuses as of 08/07/2019) Social History Tobacco Use Types Packs/Day Years Used Date Current Every Day Smoker Cigarettes 0.33 16 Smokeless Tobacco: Never Used Alcohol Use Drinks/Week oz/Week Comments Yes 5 Shots of liquor 5.0 Andrew zazueta a bottle a weekend night. Sex Assigned at Date Recorded Not on file Job Start Date Occupation Industry Not on file Not on file Not on file Travel History Travel Start Travel End No recent travel history available. documented as of this encounter Last Filed Vital Signs Vital Sign Reading Time Taken Comments Blood Pressure 132/82 08/07/2019 1:30 PM EST Pulse 87 08/07/2019 1:30 PM EST Temperature - - Respiratory Rate - - Oxygen Saturation 97% 08/07/2019 1:30 PM EST Inhaled Oxygen Concentration - - Weight 86.6 kg (191 lb) 08/07/2019 1:30 PM EST Height 185.4 cm (6' 1") 08/07/2019 1:30 PM EST Body Mass Index 25.2 08/07/2019 1:30 PM EST documented in this encounter Patient Instructions Patient InstructionsDoTrish gabriel PA-C - 08/07/2019 1:20 PM ESTEscribed refill of lexapro 10mg -- will not feel change for 7-14 days, take at same time daily Escribed BuSpar 5mg, 1 pill up to 3 x daily for anxiety Do not drink alcohol with lexapro Healthy diet, keep well hydrated, continue working out Talk with friends F/U appointment in 2 weeks Call if not improving or with any questions or concerns documented in this encounter Progress Notes Trish Link PA-C - 08/07/2019 1:20 PM EST PATIENT: Bing Viveros : 1980 DATE OF SERVICE: 08/07/2019 REFERRING PRACTITIONER: Self-Referred PRIMARY CARE PROVIDER: Reynaldo Muse CHIEF COMPLAINT: Chief Complaint Patient presents with Anxiety pt statse he had a bad breakup and is anxious. was self medicating with alcohol but would like to talk about medication Subjective HISTORY OF PRESENT ILLNESS: Bing Viveros is a 38-y.o. male who presents with anxiety x 3 weeks Bad breakup with girlfriend 3 weeks ago, grandmother a few months ago, mother is depressed Admits he has been drinking whiskey every day -- says he does no have problem, can stop drinking Wants to start medication Does not want to see therapist, says he talks with ex-, friends -- good support Was prescribed lexapro 10mg 11/09/17 by TORSTEN Torres -- admits he took it for 3 days then stopped Smoking weed every day Eating -- healthy Water -- keeping hydrated Has been working out daily --" feels good" Has custody of 2 children 10 and 14 Denies fever, chills, nausea, vomiting, diarrhea, chest pains, SOB, suicidal thoughts Depression Screening Over the last 2 weeks, have you been feeling down, depressed, anxious, or hopeless?: 2 Over the past 2 weeks, have you felt little interest or pleasure in doing things ?: 2 Trouble falling or staying asleep, or sleeping too much?: 3 Feeling tired or having little energy?: 3 Feeling bad about yourself or that you are a failure or have let yourself or your family down?: 2 Trouble concentrating on things, such as reading the newspaper or watching TV?: 3 Moving or speaking so slowly that other people notice OR being fidgety and restless?: 0 Thoughts that you would be better off or of hurting yourself in some way?: 0 How difficult have these problems made it for you to do your work, take care of things at home or get along with people?: Very difficult In the past 2 years, have you felt depressed or sad most days, even if you felt ok?: No No past medical history on file. No past surgical history on file. Family History Problem Relation Age of Onset Heart Father Current Outpatient Medications Medication Sig escitalopram (LEXAPRO) 10 MG Oral Tab Take 1 Tab by mouth DAILY. Omeprazole delayed rel cap (PRILOSEC) 20 MG Oral CAPSULE DELAYED RELEASE Take 20 mg by mouth DAILY. sucralfate (CARAFATE) 1 GM Oral Tab by Does not apply route. No current facility-administered medications for this visit. Allergies Allergen Reactions Penicillin G Anaphylaxis Social History Socioeconomic History Marital status: Single Spouse name: Not on file Number of children: Not on file Years of education: Not on file Highest education level: Not on file Occupational History Not on file Social Needs Financial resource strain: Not on file Food insecurity: Worry: Not on file Inability: Not on file Transportation needs: Medical: Not on file Non-medical: Not on file Tobacco Use Smoking status: Current Every Day Smoker Packs/day: 0.33 Years: 16.00 Pack years: 5.28 Types: Cigarettes Smokeless tobacco: Never Used Substance and Sexual Activity Alcohol use: Yes Alcohol/week: 5.0 standard drinks Types: 5 Shots of liquor per week Comment: Andrew zazueta a bottle a weekend night. Drug use: Yes Types: Marijuana Sexual activity: Yes Partners: Female Lifestyle Physical activity: Days per week: Not on file Minutes per session: Not on file Stress: Not on file Relationships Social connections: Talks on phone: Not on file Gets together: Not on file Attends religion service: Not on file Active member of club or organization: Not on file Attends meetings of clubs or organizations: Not on file Relationship status: Not on file Intimate partner violence: Fear of current or ex partner: Not on file Emotionally abused: Not on file Physically abused: Not on file Forced sexual activity: Not on file Other Topics Concern Back Care Not Asked Bike Helmet Not Asked Blood Transfusions Not Asked Caffeine Concern Not Asked Exercise Not Asked Hobby Hazards Not Asked International Travel Not Asked Service Not Asked Occupational Exposure Not Asked Seat Belt Not Asked Self-Exams Not Asked Sleep Concern Not Asked Special Diet Not Asked Stress Concern Not Asked Weight Concern Not Asked Social History Narrative Lives with two kids in [place], [place] Works as construction equipment mechanic Has girlfriend REVIEW OF SYSTEMS: Skin: negative skin lesions Eyes: negative visual blurring Ears/Nose/Throat: negative rhinorrhea or sore throat Respiratory: negative cough Cardiovascular: negative chest pain Gastrointestinal: negative abdominal pain, constipation, diarrhea, nausea or vomiting Genitourinary: negative burning on urination, dysuria Musculoskeletal: negative arthritis/joint pain Neurologic: negative numbness or tingling of feet or hands Psychiatric: positive anxiety Hematologic/Lymphatic/Immunologic: negative allergies Endocrine: negative diabetes or hot flashes/sweats Objective PHYSICAL EXAMINATION: VITALS: BP 132/82 (BP Location: Right arm, Patient Position: Sitting) | Pulse 87 | Ht 6' 1" (1.854 m) | Wt 191 lb (86.6 kg) | SpO2 97% | BMI 25.20 kg/m Body mass index is 25.2 kg/m. General appearance - alert, mild distress, cooperative, oriented times 3, anxious Skin - Skin color, texture, turgor normal. No rashes or lesions. Head - Normocephalic. No masses, lesions, tenderness or abnormalities Eyes - conjunctivae/corneas clear. PERRL, EOM's intact. Oropharynx - Lips, mucosa, and tongue normal. Teeth and gums normal. Oropharynx normal. Neck - Neck supple, FROM. No cervical or supraclavicular adenopathy. Thyroid normal, no enlargement Lungs - Good diaphragmatic excursion. Lungs clear. Chest symmetrical. Normal breath sounds. Heart - RRR. No murmurs, clicks or gallops. No peripheral edema. IMPRESSION: ICD-9-CM ICD-10-CM 1. Anxiety 300.00 F41.9 escitalopram (LEXAPRO) 10 MG Oral Tab Plan PLAN: Escribed refill of lexapro 10mg -- will not feel change for 7-14 days, take at same time daily Escribed BuSpar 5mg, 1 pill up to 3 x daily for anxiety Do not drink alcohol with lexapro Healthy diet, keep well hydrated, continue working out Talk with friends F/U appointment in 2 weeks Call if not improving or with any questions or concerns More than 50% of the physician/patient and or family encounter was spent with counseling and coordination of care. Total visit time involved was 30 minutes. Author: Trish Link PA-C 08/07/2019 13:22 documented in this encounter Plan of Treatment Date Type Specialty Care Team Description 08/22/2019 Office Visit [facility] Trish Link PA-C [address] [place], [place] [id number] [phone] Health Maintenance Due Date Last Done Comments PNEUMOCOCCAL 0-64 YRS (1 of 1 - 1984 PPSV23) HIV SCREENING 1993 DIABETES SCREENING 1996 LIPID DISORDER SCREENING 1996 INFLUENZA VACCINE (#1) 2019 DEPRESSION SCREENING 08/07/2020 08/07/2019 COLONOSCOPY SCREENING 06/18/2021 06/18/2016 HPV IMMUNIZATION SERIES Aged Out No longer eligible based on patient's age to complete this topic MENINGOCOCCAL VACCINE IMM Aged Out No longer eligible based on patient's age to complete this topic documented as of this encounter Results Not on filedocumented in this encounter Visit Diagnoses Diagnosis Anxiety - Primary Anxiety state, unspecified documented in this encounter Guarantor Name Account Type Relation to Date of Phone Billing Patient Address FeliceBing Personal/Family 1980 [phone] [address] (Home) [facility] [phone] [place], [place] (Work) [id number] documented as of this encounter
--- OUTSIDE RECORDS SUMMARY | 2019-09-01 04:47 | XMS REPORT | Summary of Care ---
:1980 Author Organization [facility] Address [address] [facility] [place] [address] Care Team Providers Name Role Phone Reynaldo Muse Primary Care Provider Reason for Visit Reason Comments Depression 1 month f/u Encounter Details Date Type Department Care Team Description 08/22/2019 Office Visit [facility] Trish Link, Anxiety (Primary Dx) ; Practice PA-C Tobacco use [address] [place], [place] [id number] [place] [address] [phone] Allergies Active Allergy Reactions Severity Noted Date Comments Penicillin G Anaphylaxis 05/06/2016 documented as of this encounter (statuses as of 08/22/2019) Medications Medication Sig Dispensed Refills Start Date End Date Status escitalopram (LEXAPRO) Take 1 Tab by 30 Tab 3 08/07/2019 Active 10 MG Oral mouth DAILY. TabIndications: Anxiety busPIRone (BUSPAR) 5 MG Take 1 Tab by 90 Tab 3 08/07/2019 Active Oral Tab mouth THREE TIMES DAILY. documented as of this encounter (statuses as of 08/22/2019) Active Problems Problem Noted Date Tobacco use 05/06/2016 Overview: 1/3 pack per day started age 19 Gastroesophageal reflux disease with esophagitis 05/06/2016 Colon polyps 05/06/2016 Overview: Colonoscopy performed age 27 for rectal bleeding documented as of this encounter (statuses as of 08/22/2019) Social History Tobacco Use Types Packs/Day Years [...] Sign Reading Time Taken Comments Blood Pressure 124/68 08/22/2019 10:23 AM EST Pulse 86 08/22/2019 10:23 AM EST Temperature 37.3 08/22/2019 10:23 AM EST C (99.1 F) Respiratory Rate - - Oxygen Saturation 98% 08/22/2019 10:23 AM EST Inhaled Oxygen Concentration - - Weight 99.8 kg (220 lb) 08/22/2019 10:23 AM EST Height 185.4 cm (6' 1") 08/22/2019 10:23 AM EST Body Mass Index 29.03 08/22/2019 10:23 AM EST documented in this encounter Patient Instructions Patient InstructionsDoTrish gabriel PA-C - 08/22/2019 10:20 AM EST1. Continue current dose of lexapro and BuSpar Continue healthy diet, keep well hydrated, working out Talk with friends 2. Strongly suggested stop smoking gradually, patient agrees, goal is to stop smoking eventually F/u with Dr. Muse as needed documented in this encounter Progress Notes Trish Link PA-C - 08/22/2019 10:20 AM EST PATIENT: Bing Viveros : 1980 DATE OF SERVICE: 08/22/2019 REFERRING PRACTITIONER: Trish Link PRIMARY CARE PROVIDER: Reynaldo Muse CHIEF COMPLAINT: Chief Complaint Patient presents with Depression 1 month f/u Subjective HISTORY OF PRESENT ILLNESS: Bing Viveros is a 38-y.o. male who presents for follow up of anxiety Was seen 08/07/19, started on lexapro 10mg and BuSpar 5mg TID PRN Today feeling better Says family members and friends see positive difference Eating healthy diet Drinking plenty of water No alcohol since last appointment smoking less weed Still smoking cigarettes, 1 pack every 3 days -- doing better, will eventually stop Still working out --" I feel great" Back with girlfriend, things are good, kids doing well Taking 10mg melatonin at night, wakes up to urinate, sometimes hard to fall back to sleep Denies fever, chills, nausea, vomiting, diarrhea, chest pains, SOB, suicidal thoughts No past medical history on file. No past surgical history on file. Family History Problem Relation Age of Onset Heart Father Current Outpatient Medications Medication Sig busPIRone (BUSPAR) 5 MG Oral Tab Take 1 Tab by mouth THREE TIMES DAILY. escitalopram (LEXAPRO) 10 MG Oral Tab Take 1 Tab by mouth DAILY. No current facility-administered medications for this visit. 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 girlfriend REVIEW OF SYSTEMS: Skin: negative skin lesions Eyes: negative visual blurring Ears/Nose/Throat: negative rhinorrhea or sore throat Respiratory: negative cough Cardiovascular: negative chest pain Gastrointestinal: negative abdominal pain, constipation, diarrhea, nausea or vomiting Genitourinary: negative burning on urination, dysuria Musculoskeletal: negative arthritis/joint pain Neurologic: negative numbness or tingling of feet or hands Psychiatric: positive anxiety -- improving Hematologic/Lymphatic/Immunologic: negative allergies Endocrine: negative diabetes or hot flashes/sweats Objective PHYSICAL EXAMINATION: VITALS: BP 124/68 (BP Location: Right arm, Patient Position: Sitting) | Pulse 86 | Temp 99.1 F (37.3 C) | Ht 6' 1" (1.854 m) | Wt 220 lb (99.8 kg) | SpO2 98% | BMI 29.03 kg/m Body mass index is 29.03 kg/m. General appearance - alert, no distress, cooperative, oriented times 3 Skin - Skin color, texture, turgor normal. [...] IMPRESSION: ICD-9-CM ICD-10-CM 1. Anxiety 300.00 F41.9 2. Tobacco use 305.1 Z72.0 Plan PLAN: 1. Continue current dose of lexapro and BuSpar Continue healthy diet, keep well hydrated, working out Talk with friends 2. Strongly suggested stop smoking gradually, patient agrees, goal is to stop smoking eventually F/u with Dr. Muse as needed Author: Trish Link PA-C 08/22/2019 10:28 documented in this encounter Plan of Treatment Health Maintenance Due Date Last Done Comments PNEUMOCOCCAL 0-64 YRS (1 of 1 - 1984 PPSV23) HIV SCREENING 1993 DIABETES SCREENING 1996 LIPID DISORDER SCREENING 1996 INFLUENZA VACCINE (#1) 2019 DEPRESSION SCREENING 08/07/2020 08/07/2019 Colonoscopy 06/18/2021 06/18/2016 HPV IMMUNIZATION SERIES Aged Out No longer eligible based on patient's age to complete this topic MENINGOCOCCAL VACCINE IMM Aged Out No longer eligible based on patient's age to complete this topic documented as of this encounter Results Not on filedocumented in this encounter Visit Diagnoses Diagnosis Anxiety - Primary Anxiety state, unspecified Tobacco use Tobacco use disorder documented in this encounter Guarantor Name Account Type Relation to Date of Phone Billing Patient Address FeliceBing Personal/Family 1980 [phone] [address] [facility] (Home) [facility] [phone] [place], [place] (Work) [address] documented as of this encounter
--- NOTE | 2019-09-01 06:27 | ED ---
Lower Extremity - HPI Summary HPI Summary: Patient is a 38-year-old male who presents emergency department for left ankle injury that occurred last night while playing basketball. Patient notes he developed pain to his left ankle after he jumped up. Patient states pain wasn' t too bad last night but this morning had significant pain with ambulation. Symptoms are mild in severity. No associated symptoms of numbness or tingling. Patient notes numerous ankle sprains in the past. - History of Current Complaint Chief Complaint: EDExtremityLower Stated Complaint: ANKLE INJURY PER PT Time Seen by Provider: 09/01/19 05:36 Hx Obtained From: Patient Pain Intensity: 10 - Allergies/Home Medications Allergies/Adverse Reactions: Allergies Allergy/AdvReac Type Severity Reaction Status Date / Time Penicillins Allergy Swelling Verified 09/01/19 04:42 Of Face,Lips,& Throat PMH/Surg Hx/FS Hx/Imm Hx Previously Healthy: Yes Cardiovascular History: Denies: Hx Hypertension, Other Cardiovascular Problems/Disorders Respiratory History: Reports: Hx Asthma - as a child, Hx Sleep Apnea - Obstructive sleep apnea, Other Respiratory Problems/Disorders - Hypertophy of tonsils, History of pneumonia 08/07 GI History: Reports: Hx Gastroesophageal Reflux Disease - pantoprazole on occasion Denies: Other GI Disorders History: Reports: Other Problems/Disorders - Hx of Prostatitis, uretheral narrowing-opened up Musculoskeletal History: Reports: Hx Bursitis - Right knee, Other Musculoskeletal History - Right knee surgery-ruptured bursae sac 2014 Sensory History: Reports: Hx Contacts or Glasses - Glasses Denies: Hx Hearing Aid Opthamlomology History: Reports: Hx Contacts or Glasses - Glasses Neurological History: Reports: Hx Migraine - per H&P, Other Neuro Impairments/ Disorders - Vertigo per H&P - Surgical History Surgery Procedure, Year, and Place: Right hand cyst removal. Adenoidectomy as a child. Left knee surgery 2016. Colonoscopy Hx Anesthesia Reactions: Yes - thinks mother did, but can't remember - Immunization History Date of Tetanus Vaccine: unk Date of Influenza Vaccine: unk Infectious Disease History: No Infectious Disease History: Denies: Traveled Outside the [place] in Last 30 Days - Family History Known Family History: Positive: Other - Negative for Meniere's Disease, Non- Contributory - Social History Occupation: Employed Full-time Lives: With Family Alcohol Use: Weekly Alcohol Amount: 1-2 times per week Substance Use Type: Reports: Marijuana Substance Use Comment - Amount & Last Used: daily marijuana use Hx Tobacco Use: Yes Smoking Status (MU): Light Every Day Tobacco Smoker Type: Cigarettes Amount Used/How Often: 1 pack every 3 days Have You Smoked in the Last Year: Yes Review of Systems Positive: Other - left ankle pain Skin: Negative Neurological: Negative Negative: Weakness, Paresthesia, Numbness All Other Systems Reviewed And Are Negative: Yes Physical Exam Triage Information Reviewed: Yes Vital Signs On Initial Exam: Initial Vitals Temp Pulse Resp BP Pulse Ox 98.5 F 100 16 112/81 96 09/01/19 04:39 09/01/19 04:39 09/01/19 04:39 09/01/19 04:39 09/01/19 04:39 Vital Signs Reviewed: Yes Appearance: Positive: Well-Appearing - Patient lying in bed in no acute distress. Son present. Skin: Positive: Warm, Dry Head/Face: Positive: Normal Head/Face Inspection Eyes: Positive: Normal, EOMI, TONY Neck: Positive: Supple Musculoskeletal: Positive: Other - Pain noted over left medial lateral malleolus. Achilles tendon is intact negative Andrew sign. No proximal tib- fib or knee pain. Good palpable pedal pulse. No palpable foot pain. No erythema, wounds or increased warmth. Neurological: Positive: Normal, CN Intact II-III Psychiatric: Positive: Affect/Mood Appropriate Procedures - Sedation Patient Received Moderate/Deep Sedation with Procedure: No - Splinting Left Lower Extremity Pre-Made Type: aircast Pre-Proc Neuro Vasc Exam: normal Post-Proc Neuro Vasc Exam: normal Diagnostics - Vital Signs Vital Signs Temp Pulse Resp BP Pulse Ox 09/01/19 04:39 98.5 F 100 16 112/81 96 - Laboratory Lab Statement: Any lab studies that have been ordered have been reviewed, and results considered in the medical decision making process. Lower Extremity Course/Dx - Course Course Of Treatment: Patient presenting with isolated ankle injury. X-ray negative for acute fracture dislocation, reading per myself and Dr. Latif. Hosea wrap and air splint lace for comfort. Advised ice and elevation, rest, anti -inflammatories. Will follow-up with PCP if symptoms persist for evaluation. Patient understands and agrees with plan. - Diagnoses Differential Diagnosis/HQI/PQRI: Positive: Contusion, Dislocation, Fracture ( Closed), Sprain, Strain, Tendonitis Bad table Discharge ED - Sign-Out/Discharge Documenting (check all that apply): Patient Departure - Discharge Plan Condition: Improved Disposition: HOME Patient Education Materials: Ankle Sprain (ED) Referrals: Reynaldo Muse MD [Primary Care Provider] - Additional Instructions: Schedule a follow up appointment with PCP for recheck in 1-2 weeks if pain persist Ice and elevate intermittently Ibuprofen for pain as directed Splint for comfort Return to ER if symptoms change or worsen - Billing Disposition and Condition Condition: IMPROVED Disposition: Home
[2019-09-01 06:42] VITALS: BP 151/73
== END 2019-09-01 06:30 | disposition home or self-care (01) ==
LOC: ED 04:37
DX: S99.912A Unspecified injury of left ankle, initial encounter (principal); X50.9XXA Other and unspecified overexertion or strenuous movements or postures, initial encounter; Y93.67 Activity, basketball; F17.210 Nicotine dependence, cigarettes, uncomplicated
CPT/HCPCS: 99282